=== PATIENT | female | born 1950 | race Caucasian/White ===

== ENCOUNTER 2025-09-07 13:34 | Emergency (ER) | payer SELFPAY ==
[2025-09-07 13:37] VITALS: BP 134/80
--- NOTE | 2025-09-07 14:15 | ED.MUSCINJ ---
HPI-Injury
General
Chief Complaint: Musculo-Skeletal Complaint
Source: patient
Time Seen by Provider: 09/07/25 14:09
History of Present Illness-Injury
Initial Injury comments:
74-year-old [id number] female presents complaining of bilateral wrist pain after a slip and fall today. She fell forward. Her left wrist hurts worse than the right. No head strike. She denies neck pain. She is not on any medication.
No other complaints
Phy Exam
Physical Exam
Physical Exam:
General: Well-appearing female no acute respiratory distress
HEENT normal cephalic atraumatic
Heart: Regular rate and rhythm
Lungs: Clear no wheeze
Musculoskeletal exam: The spine is nontender there is swelling and small deformity noted to the left wrist and tender over the distal radius. The right wrist is mildly tender diffusely without deformity. Good range of motion of the elbows and legs
Skin is intact
Injury Course
Orders/Labs/Results
Orders:
Orders
09/07/25 13:43
CR Wrist - Left Min 3 Views Urgent
Comment:
Reason For Exam: fall
CR Wrist - Right Min 3 Views Urgent
Comment:
Reason For Exam: fall
09/07/25 14:14
Oxycodone/Acetaminophen [Percocet 5/325] 1 tablet PO NOW STA
MDM/Problems Addressed
Differential Diagnosis Includes:
Mechanical fall with bilateral wrist pain. Consider sprain versus fracture versus patient. X-rays of both wrist pending. Pain medicine ordered
*Pulse Oximetry
SaO2: 98
Oxygen Mode of Delivery: Room air
Patient hypoxic: no
*Critical Care Note
Total Time (30-74mins, 75-104mins- exclusive of procedures): Not Applicable
Update Note
Update Note:
I personally visualized x-rays of both wrist. There is an intra-articular distal radius fracture of the left wrist. There is no fracture of the right wrist. I placed the patient in a sugar-tong splint using 2 inch OCL Yves bandages and cast
padding. A sling was applied for comfort. She was prescribed pain medicine was advised to follow-up with orthopedics for further evaluation
ED Attending Note
-
Portions of this chart may have been created with voice recognition software.� Occasional wrong word or��sound alike� substitutions may have occurred due to the inherent limitations of voice recognition software.
Discharge Plan
Departure
Patient Disposition: Home (Routine Discharge)
Date of Disposition: 09/07/25
Time of Disposition: 14:57
Patient with high blood pressure during this ER visit?: No
Discharge Problem:
Distal radial fracture
Instructions: Muscle and Bone Pain (DC)
Prescriptions:
New
hydrocodone-acetaminophen 5-325 mg tablet
1 tab PO TID PRN (Reason: Pain) Qty: 10 0RF
Referrals:
Marie Patrick I., DO [Active, Orthopedics]
Activity Restrictions/Additional Instructions:
Keep splint on and dry. You may use ibuprofen or Tylenol for pain. You were prescribed stronger pain medicine as needed for severe pain. Take this as needed. Follow-up with the [facility] for next available appointment
Interventions
Interventions:
*Risk Screen - Suicide Last Done: 09/07/25 13:37
*General Assessment Last Done: 09/07/25 13:37
*Neglect/Abuse Screening Last Done: 09/07/25 14:38
*ED COVID-19 Vaccine History Last Done: 09/07/25 14:38
*ED Influenza Vaccine History Last Done: 09/07/25 14:38
[facility] Risk Assessment Tool Last Done: 09/07/25 14:38
*Nursing Disposition Last Done: 09/07/25 17:55
ED-Musculoskeletal Assessment Last Done: 09/07/25 14:38
Discharge Date and Time
Discharge Date/Time: 09/07/25 17:55
Print Language: [id number]
[2025-09-07 14:33] VITALS: BMI 18.8
[2025-09-07] MEDS: PERCOCET 5/325 1 TABLET PO (14:34)
[2025-09-07 14:36] VITALS: BP 126/58
== END 2025-09-07 17:55 | disposition home or self-care (01) ==
LOC: EMR 13:34
PROVIDERS: EMERGENCY PHYSICIAN Student in an Organized Health Care Education/Training Program; FAMILY PHYSICIAN Family Medicine
DX: S52.572A Other intraarticular fracture of lower end of left radius, initial encounter for closed fracture (principal); M25.531 Pain in right wrist; W01.0XXA Fall on same level from slipping, tripping and stumbling without subsequent striking against object, initial encounter
CPT/HCPCS: 99283; 29125; 73110